=== PATIENT | female | born 1995 | race Caucasian/White ===

== ENCOUNTER 2024-08-17 06:16 | Day surgery (SDC) | payer OTHER ==
[2024-08-08 08:50] VITALS: BP 113/79
[2024-08-08 09:21] LABS: HEMATOCRIT 38.9 % (36.0-45.00); HEMOGLOBIN 13.3 g/dL (12.0-15.00); MEAN CELL VOLUME 87.5 fL (80.00-100.00); MEAN CORPUSCULAR HGB CONC 34.3 g/dl (32.0-36.0); PLATELET COUNT 214 K/uL (150-450); RED BLOOD COUNT 4.44 M/uL (4.00-6.00); RED CELL DISTRIBUTION WIDTH 13.5 % (11.5-14.5)
[2024-08-08 09:37] LABS: URINE APPEARANCE Clear; URINE BILIRRUBIN Negative (NEGATIVE); URINE BLOOD Moderate; URINE COLOR Yellow; URINE GLUCOSE Negative (NEGATIVE); URINE KETONE Negative (NEGATIVE); URINE LEUKOCYTE Negative; URINE NITRATE Negative; URINE PROTEIN Negative (NEGATIVE); URINE UROBILINOGEN 0.2 E.U./dl
[2024-08-08 09:47] LABS: INR 1.05; PARTIAL THROMBOPLASTIN TIME 28.8 SECONDS (22.0-34.0); PROTHROMBIN TIME 11.4 SECONDS (9.0-11.5)
[2024-08-08 09:47] LABS: URINE BACTERIA 165.2 uL (0.0-1933); URINE EPITHELIAL CELLS 10.5 uL (0.0-38.8); URINE RBC 8.9 uL (0.0-20.8); URINE WBC 7.2 uL (0.0-23.2)
[2024-08-08 10:01] LABS: URINE CAST 0.14 uL (0.0-1.40)
[2024-08-08 10:08] LABS: ALBUMIN 3.7 gm/dL (3.4-5.0); BILIRUBIN TOTAL 0.44 mg/dL (0.3-1.2); CALCIUM 9.1 mg/dL (8.5-10.1); CREATININE SERUM 0.55 mg/dL (0.55-1.02); GFR 129.78; GLOBULINA 3.2 G/DL (2.4-3.5); POTASSIUM 3.98 mEq/L (3.5-5.1); TOTAL PROTEIN 6.9 gm/dL (6.4-8.2)
[~2024-08-17] VITALS: Ht 154.9 cm; Wt 73.5 kg
[2024-08-17] MEDS ORDERED: CEFAZOLIN SODIUM 1,000 MG VIAL IV ONE (10:15)
[2024-08-17] MEDS ORDERED: POVIDONE-IODINE 118 ML BOTT TOP ONE (10:15)
[2024-08-17] MEDS ORDERED: NAPROXEN500 MG PO (11:04)
[2024-08-17] MEDS ORDERED: DOXYCYCLINE HY100 M2 PO (11:04)
== END 2024-08-17 15:45 | disposition home or self-care (01) ==
LOC: CIR.AMB 06:16
PROVIDERS: ATTEND Obstetrics & Gynecology
DX: D25.0 Submucous leiomyoma of uterus (principal); N84.0 Polyp of corpus uteri; N92.0 Excessive and frequent menstruation with regular cycle; N83.202 Unspecified ovarian cyst, left side